=== PATIENT | female | born 1940 | race Caucasian/White ===

== ENCOUNTER 2017-03-30 23:14 | Emergency (ER) | payer OTHER ==
[2017-03-30 23:24] VITALS: BP 154/73; PULSE 73; TEMP 99.4; BMI 23.3
--- NOTE | 2017-03-30 23:38 | PDOC ---
History of Present Illness - General Chief Complaint: Pain, Acute Stated Complaint: SLIPPED DOWN STAIRS, SHOULDER AND HIP PAIN Time Seen by Provider: 03/30/17 23:32 - History of Present Illness Initial Comments: 03/30/17 23:39 This 77-year-old woman with a history of acoustic neuroma/prediabetes is brought in by ambulance with a history of fall. Patient describes slipping while walking downstairs while wearing socks; patient fell down approximately 6 steps. She remembers striking her right shoulder and left hip during fall. She adamantly denies head/neck injury. She complains of mild right shoulder/ left hip pain, mostly with movement. She was able to bear weight briefly when transferring from supine position to a seated position prior to being transported by EMS. She denies shortness of breath/chest pain/abdominal pain. She has no headache or neck pain. Of note, patient's daughter and friend were present very soon after patient fell. She was alert and oriented initially but had short (approximately 15 second) loss of consciousness when she was assisted to a seated position at base of the staircase. She was alert when she regained consciousness There was no seizure activity/incontinent/ confusion or lethargy Medications Vitamins and supplemental calcium only No known ALLERGIES Past History - Past Medical History Allergies/Adverse Reactions: Allergies Allergy/AdvReac Type Severity Reaction Status Date / Time No Known Allergies Allergy Verified 03/30/17 23:16 Home Medications: Ambulatory Orders NK [No Known Home Medication] 03/30/17 COPD: No Other medical history: DENIES - Suicide/Smoking/Psychosocial Hx Smoking History: Never smoked Have you smoked in the past 12 months: No Information on smoking cessation initiated: No Hx Alcohol Use: No Drug/Substance Use Hx: No Substance Use Type: None Review of Systems - Review of Systems Able to Perform ROS?: Yes Comments:: 12 point review of systems is negative except for what is noted in the history of present illness *Physical Exam - Vital Signs Last Vital Signs Temp Pulse Resp BP Pulse Ox 99.4 F 73 16 154/73 98 03/30/17 23:16 03/30/17 23:16 03/30/17 23:16 03/30/17 23:16 03/30/17 23:16 - Physical Exam Comments: GENERAL: Adult female, alert and oriented 3, in no acute distress HEAD: Normal with no signs of trauma. EYES: PERRLA, EOMI, sclera anicteric, conjunctiva clear. ENT: Ears normal, nares patent, oropharynx clear without exudates. Moist mucous membranes. NECK: Normal range of motion, nontender, supple without lymphadenopathy, JVD, or masses. LUNGS: Breath sounds equal, clear to auscultation bilaterally. No wheezes, and no crackles. HEART:Regular rate and rhythm, normal S1 and S2 without murmur, rub or gallop. ABDOMEN:.normal bowel sounds No guarding,tenderness or rebound.No masses No distention. EXTREMITIES: Right shoulder -Mild posterior tenderness without edema/deformity/ ecchymosis. Pain worsened with abduction of arm Left hip-mild tenderness without deformity/edema/ ecchymosis greater trochanter No anterior joint tenderness; range of motion intact without pain NEUROLOGICAL: Cranial nerves II through XII grossly intact. Pupils 2 mm equal and reactive Normal speech. No focal neurological deficits. MUSCULOSKELETAL: Back non-tender to palpation, no CVA tenderness SKIN: Warm, Dry, normal turgor, no rashes or lesions noted. Medical Decision Making - Medical Decision Making 12-lead electrocardiogram performed. This shows normal sinus rhythm with normal axis, intervals and wave forms. No evidence of acute ST or T-wave abnormalities. No arrhythmia/extrasystoles/pauses Preliminary results of right shoulder and left hip x-rays: No fracture/ dislocation or other acute process evident. Because of the patient's brief loss of consciousness, possibility of acute intracranial injury is possible (even though patient states that she did not hit her head and there is no evidence on exam of head or neck tenderness/edema/ skin break). Noncontrast head CT was planned to fully evaluate for intracranial injury. However, the patient adamantly refused, stating that because of a history of acoustic neuroma, she has had large amount of radiation therapy to her brain and prefers no further exposure to radiation. Since patient is awake and alert without symptoms and without evidence of focal neurologic deficit, noncontrast head CT deferred. However, patient was strongly urged to return to emergency room immediately if she develops headache , nausea, lightheadedness, difficulty speaking or increase in balance difficulties Patient was discharged in the company of her daughter and friend, awake and alert and ambulating without difficulty. *DC/Admit/Observation/Transfer Diagnosis at time of Disposition: Contusion of right shoulder Qualifiers: Encounter type: initial encounter Qualified Code(s): S40.011A - Contusion of right shoulder, initial encounter Contusion of left hip Qualifiers: Encounter type: initial encounter Qualified Code(s): S70.02XA - Contusion of left hip, initial encounter - Discharge Dispostion Disposition: HOME Condition at time of disposition: Stable - Referrals - Patient Instructions Printed Discharge Instructions: DI for Contusion Additional Instructions: Rest; avoid strenuous activity for the next few days Ibuprofen/naproxen/acetaminophen as needed for pain Return here immediately if you have headache/nausea/lightheadedness Return here if you have worsening pain and shoulder or hip Follow-up with your physician when you return home - Post Discharge Activity
--- NOTE | 2017-04-01 12:17 | EKG ---
Test Reason : Blood Pressure : / mmHG Vent. Rate : 074 BPM Atrial Rate : 074 BPM P-R Int : 138 ms QRS Dur : 084 ms QT Int : 402 ms P-R-T Axes : 053 005 054 degrees QTc Int : 446 ms NORMAL SINUS RHYTHM NO PREVIOUS ECGS AVAILABLE Confirmed by RIOS BALL MD ([id number] on 04/01/2017 12:17:18 PM Referred By: MD ADAIR Confirmed By:RIOS BALL MD
--- NOTE | 2017-04-15 10:50 | EKG ---
Test Reason : Blood Pressure : / mmHG Vent. Rate : 075 BPM Atrial Rate : 075 BPM P-R Int : 132 ms QRS Dur : 084 ms QT Int : 404 ms P-R-T Axes : 052 006 060 degrees QTc Int : 451 ms NORMAL SINUS RHYTHM RW decay from V2 to V3 -> likely lead placemnt WHEN COMPARED WITH ECG OF 31-MAR-2017 00:26, NO SIGNIFICANT CHANGE WAS FOUND Confirmed by MD JOSEPH, BETHEL ([id number] on 04/15/2017 10:49:50 AM Referred By: MD ADAIR Confirmed By:BETHEL RUIZ MD
== END 2017-03-31 01:30 | disposition home or self-care (01) ==
LOC: FER 23:14
DX: S40.011A Contusion of right shoulder, initial encounter (principal); S70.02XA Contusion of left hip, initial encounter; W10.9XXA Fall (on) (from) unspecified stairs and steps, initial encounter; Y93.89 Activity, other specified; Y92.9 Unspecified place or not applicable; R73.03 Prediabetes
CPT/HCPCS: 73030-TC-RT; 73523-TC; 93005; 93010; 99281-25